=== PATIENT | female | born 1970 | race Caucasian/White ===

== ENCOUNTER 2016-12-21 16:11 | Emergency (ER) | payer OTHER ==
[2016-12-21 17:18] LABS: Partial Thromboplastin Time 23.5 sec (22.0-30.0); Prothrombin Time 10.3 sec (9.0-12.0)
[2016-12-21 17:26] LABS: ALT 23 U/L (9-52); AST 19 U/L (14-36); Alkaline Phosphatase 135 U/L (38-126); Anion Gap 13 mmol/L; Blood Urea Nitrogen 13 mg/dL (7-17); Calcium 9.8 mg/dL (8.4-10.2); Carbon Dioxide 30 mmol/L (22-30); Chloride 99 mmol/L (98-107); Glucose 137 mg/dL (74-99); Non-African American GFR(MDRD) >60 (>60 ml/min/1.73 sqM); Potassium 4.5 mmol/L (3.5-5.1); Sodium 142 mmol/L (137-145); Total Bilirubin 0.4 mg/dL (0.2-1.3); Total Protein 7.5 g/dL (6.3-8.2)
[2016-12-21 17:35] LABS: Basophils % (A) 0 %; CH 31.5; CHCM 32.4; Eosinophils % (A) 0 %; HCT 34.5 % (34.0-46.0); HGB 10.8 gm/dL (11.4-16.0); Luc % (Auto) 4; Lymphocytes # (A) 1.8 k/uL (1.0-4.8); Lymphocytes % (A) 17 %; MCH 30.4 pg (25.0-35.0); MCHC 31.3 g/dL (31.0-37.0); MCV 97.3 fL (80.0-100.0); Mean Platelet Volume 7.5; Monocytes # (A) 0.7 k/uL (0-1.0); Monocytes % (A) 6 %; Neutrophils # (A) 7.7 k/uL (1.3-7.7); Neutrophils % (A) 72 %; RBC 3.54 m/uL (3.80-5.40); RBC Fragment Flag Slight; RDW 13.5 % (11.5-15.5); Reticulocyte % 1.1 % (0.5-2.0); WBC 10.6 k/uL (3.8-10.6); WBC (Perox) 10.17
[2016-12-21 17:49] VITALS: PULSE 101
[2016-12-21 18:10] LABS: Large Platelets Present; Manual Review Performed; Polychromasia Present
--- NOTE | 2016-12-21 18:46 | ED ---
Recheck HPI - General Chief Complaint: Recheck/Abnormal Lab/Rx Stated Complaint: Abnormal Labs Time Seen by Provider: 12/21/16 16:37 Source: patient, RN notes reviewed Mode of arrival: ambulatory Limitations: no limitations - History of Present Illness Initial Comments: 45-year-old female presented emergency department for abnormal labs. Patient states she was told her platelets, hemoglobin and back Problems. Patient states she went to her primary physician on Sunday because she was not feeling well patient is just very fatigued. Patient denies any focal weakness, headache , dizziness, nausea, vomiting. She states she did have some abdominal pain in the left side in the past for states she really does not much parents time. Denies any dysuria hematuria. Patient denies any chest pain or palpitations. Patient has a history of diabetes but no other significant past medical history. - Related Data Home Medications Medication Instructions Recorded Confirmed Cyclobenzaprine [Flexeril] 10 mg PO HS PRN 06/18/14 12/21/16 Lisinopril [Zestril] 2.5 mg PO HS 06/18/14 12/21/16 HYDROcodone/APAP 10-325MG [[place] 1 - 2 tab PO Q6H PRN 03/04/15 12/21/16 10-325] Insulin Glulisine [Apidra] See Protocol SQ DAILY 03/04/15 12/21/16 Simvastatin [Zocor] 20 mg PO HS 03/04/15 12/21/16 Ascorbic Acid [Vitamin C] 500 mg PO HS 12/21/16 12/21/16 Aspirin 81 mg PO HS 12/21/16 12/21/16 Allergies Allergy/AdvReac Type Severity Reaction Status Date / Time No Known Allergies Allergy Verified 12/21/16 17:15 Review of Systems ROS Statement: Those systems with pertinent positive or pertinent negative responses have been documented in the HPI. ROS Other: All systems not noted in ROS Statement are negative. Past Medical History Past Medical History: Diabetes Mellitus Additional Past Medical History / Comment(s): SEIZURE DUE TO BLOOD SUGAR, insulin pump History of Any Multi-Drug Resistant Organisms: None Reported Past Surgical History: Appendectomy, Orthopedic Surgery Additional Past Surgical History / Comment(s): HAND SURGERY Past Anesthesia/Blood Transfusion Reactions: No Reported Reaction Past Psychological History: Anxiety Smoking Status: Former smoker Past Alcohol Use History: Occasional Past Drug Use History: None Reported - Past Family History Father Family Medical History: Cancer Sister(s) Family Medical History: Cancer General Exam Limitations: no limitations General appearance: alert, in no apparent distress Head exam: Present: atraumatic, normocephalic, normal inspection Eye exam: Present: normal appearance, PERRL, EOMI. Absent: scleral icterus, conjunctival injection, periorbital swelling Respiratory exam: Present: normal lung sounds bilaterally. Absent: respiratory distress, wheezes, rales, rhonchi, stridor Cardiovascular Exam: Present: regular rate, normal rhythm, normal heart sounds. Absent: systolic murmur, diastolic murmur, rubs, gallop, clicks GI/Abdominal exam: Present: soft, normal bowel sounds. Absent: distended, tenderness, guarding, rebound, rigid Course Vital Signs 12/21/16 12/21/16 16:12 17:40 Temperature 98.4 F Pulse Rate 110 H 101 H Respiratory 16 14 Rate Blood Pressure 139/70 120/65 O2 Sat by Pulse 100 100 Oximetry Medical Decision Making - Medical Decision Making Please was discussed with Dr. Roman who states that the patient is stable she can follow up outpatient with hematology. Patient's vitals are within normal limits and patient is having no complaints at this time. Patient does have elevated platelets and mild anemia. Patient referred to a time checker. Return parameters were discussed. - Lab Data Result diagrams: 12/21/16 17:00 12/21/16 17:00 Lab Results 12/21/16 12/21/16 12/21/16 Range/Units 17:00 17:00 17:00 WBC 10.6 (3.8-10.6) k/uL RBC 3.54 L (3.80-5.40) m/uL Hgb 10.8 L (11.4-16.0) gm/dL Hct 34.5 (34.0-46.0) % MCV 97.3 (80.0-100.0) fL MCH 30.4 (25.0-35.0) pg MCHC 31.3 (31.0-37.0) g/dL RDW 13.5 (11.5-15.5) % Plt Count 1016 H* (150-450) k/uL Neutrophils % 72 % Lymphocytes % 17 % Monocytes % 6 % Eosinophils % 0 % Basophils % 0 % Neutrophils # 7.7 (1.3-7.7) k/uL Lymphocytes # 1.8 (1.0-4.8) k/uL Monocytes # 0.7 (0-1.0) k/uL Eosinophils # 0.0 (0-0.7) k/uL Basophils # 0.0 (0-0.2) k/uL Manual Slide Review Performed Large Platelets Present Polychromasia Present Retic Count 1.1 (0.5-2.0) % PT (9.0-12.0) sec INR (<1.1) APTT (22.0-30.0) sec Sodium 142 (137-145) mmol/L Potassium 4.5 (3.5-5.1) mmol/L Chloride 99 (98-107) mmol/L Carbon Dioxide 30 (22-30) mmol/L Anion Gap 13 mmol/L BUN 13 (7-17) mg/dL Creatinine 0.75 (0.52-1.04) mg/dL Est GFR (MDRD) Af Amer >60 (>60 ml/min/1.73 sqM) Est GFR (MDRD) Non-Af >60 (>60 ml/min/1.73 sqM) Glucose 137 H (74-99) mg/dL Calcium 9.8 (8.4-10.2) mg/dL Total Bilirubin 0.4 (0.2-1.3) mg/dL AST 19 (14-36) U/L ALT 23 (9-52) U/L Alkaline Phosphatase 135 H (38-126) U/L Total Protein 7.5 (6.3-8.2) g/dL Albumin 3.8 (3.5-5.0) g/dL Blood Type A Positive Blood Type Recheck CABO Indicated Antibody Screen NEGATIVE Spec Expiration Date 12/24/2016 - 229912/21/16 Range/Units 17:00 WBC (3.8-10.6) k/uL RBC (3.80-5.40) m/uL Hgb (11.4-16.0) gm/dL Hct (34.0-46.0) % MCV (80.0-100.0) fL MCH (25.0-35.0) pg MCHC (31.0-37.0) g/dL RDW (11.5-15.5) % Plt Count (150-450) k/uL Neutrophils % % Lymphocytes % % Monocytes % % Eosinophils % % Basophils % % Neutrophils # (1.3-7.7) k/uL Lymphocytes # (1.0-4.8) k/uL Monocytes # (0-1.0) k/uL Eosinophils # (0-0.7) k/uL Basophils # (0-0.2) k/uL Manual Slide Review Large Platelets Polychromasia Retic Count (0.5-2.0) % PT 10.3 (9.0-12.0) sec INR 1.0 (<1.1) APTT 23.5 (22.0-30.0) sec Sodium (137-145) mmol/L Potassium (3.5-5.1) mmol/L Chloride (98-107) mmol/L Carbon Dioxide (22-30) mmol/L Anion Gap mmol/L BUN (7-17) mg/dL Creatinine (0.52-1.04) mg/dL Est GFR (MDRD) Af Amer (>60 ml/min/1.73 sqM) Est GFR (MDRD) Non-Af (>60 ml/min/1.73 sqM) Glucose (74-99) mg/dL Calcium (8.4-10.2) mg/dL Total Bilirubin (0.2-1.3) mg/dL AST (14-36) U/L ALT (9-52) U/L Alkaline Phosphatase (38-126) U/L Total Protein (6.3-8.2) g/dL Albumin (3.5-5.0) g/dL Blood Type Blood Type Recheck Antibody Screen Spec Expiration Date Disposition Clinical Impression: Thrombocytosis, Anemia Disposition: HOME SELF-CARE Condition: Stable Instructions: Anemia (ED) Additional Instructions: Please return to the Emergency Department if symptoms worsen or any other concerns. Referrals: Devang Roman MD [Primary Care Provider] - 1-2 days Andrew Farmer MD [STAFF PHYSICIAN] - 1-2 days Time of Disposition: 18:46
[2016-12-21 19:10] VITALS: BP 142/76; RESP 18; TEMP 98.6
== END 2016-12-21 19:10 | disposition home or self-care (01) ==
LOC: EC 16:11
DX: D47.3 Essential (hemorrhagic) thrombocythemia (principal); D64.9 Anemia, unspecified; R53.83 Other fatigue; R10.9 Unspecified abdominal pain; E11.9 Type 2 diabetes mellitus without complications; Z87.891 Personal history of nicotine dependence; Z79.4 Long term (current) use of insulin; Z79.82 Long term (current) use of aspirin; Z79.899 Other long term (current) drug therapy
CPT/HCPCS: 36415; 80053; 85025; 85045; 85610; 85730; 86850; 86900; 86901; 99283

== ENCOUNTER → 2018-12-02 | Outpatient (CLI) | payer OTHER ==
[2018-12-03 01:39] LABS: ALT 15 U/L (8-44); AST 32 U/L (13-35)
== END | disposition home or self-care (01) ==
LOC: LABWHC1 15:58
PROVIDERS: ATTEND Podiatrist Foot & Ankle Surgery
DX: K76.9 Liver disease, unspecified (principal)
CPT/HCPCS: 36415; 84450; 84460

== ENCOUNTER → 2018-12-17 | Outpatient (CLI) | payer OTHER ==
[2018-12-17 16:05] VITALS: BP 122/71; PULSE 86; RESP 18; TEMP 97.3; BMI 26.4
--- NOTE | 2018-12-17 16:55 | P.HPOB ---
History of Present Illness H&P Date: 12/17/18 Chief Complaint: The patient is here for her routine gynecologic exam and ma mmogram. This is a 47-year-old G0 with an LMP of 12/07/2018. The patient is without gynecologic complaints. She has used condoms for control. Review of Systems The patient's weight has been stable over the last 2 years. She denies respiratory, cardiac, or G.I. problems. Past Medical History Past Medical History: Diabetes Mellitus, Hyperlipidemia, Osteoarthritis (OA) Additional Past Medical History / Comment(s): Type I diabetes since age 12. Diabetic neuropathy. Arthritis of the neck. 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 History of Any Multi-Drug Resistant Organisms: None Reported Past Surgical History: Appendectomy, Orthopedic Surgery Additional Past Surgical History / Comment(s): HAND SURGERY. Right rotator cuff surgery. Arthroscopic knee surgery. Past Anesthesia/Blood Transfusion Reactions: No Reported Reaction Past Psychological History: Anxiety Smoking Status: Former smoker Past Alcohol Use History: Occasional (3 or 4 per month) Past Drug Use History: None Reported Additional History: She has been with her boyfriend since 1992 and lives with him. 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 - Past Family History Father Family Medical History: Cancer Additional Family Medical History / Comment(s): Lymphoma Sister(s) Family Medical History: Cancer Additional Family Medical History / Comment(s): Liver cancer. Mother Family Medical History: Coronary Artery Disease (CAD) Medications and Allergies Home Medications Medication Instructions Recorded Confirmed Type Cyclobenzaprine [Flexeril] 10 mg PO HS PRN 06/18/14 12/21/16 History Lisinopril [Zestril] 2.5 mg PO HS 06/18/14 12/17/18 History Simvastatin [Zocor] 20 mg PO HS 03/04/15 12/21/16 History Ascorbic Acid [Vitamin C] 500 mg PO HS 12/21/16 12/21/16 History Aspirin 81 mg PO HS 12/21/16 12/21/16 History HYDROcodone/APAP 7.5-325MG [[place] 1 tab PO Q4-6H PRN 12/17/18 12/17/18 History 7.5-325] Insulin Lispro [Admelog] 100 unit SQ 12/17/18 History Allergies Allergy/AdvReac Type Severity Reaction Status Date / Time No Known Allergies Allergy Verified 12/17/18 16:05 Exam Vital Signs Temp Pulse Resp BP Pulse Ox 12/17/18 15:57 97.3 F L 86 18 122/71 97 Intake and Output 12/17/18 12/17/18 12/17/18 06:59 14:59 22:59 Other: Weight 69.853 kg Height 5'4", weight 154 pounds, BMI 26.4. This is a well-developed well-nourished white female who is alert and oriented times 3 in no acute distress. HEENT: Within normal limits. NECK: Supple without mass or thyromegaly. CHEST AND LUNGS: Clear to auscultation. HEART: Regular rate and rhythm. BREASTS: Are without mass or discharge. AXILLARY EXAM: Negative for adenopathy. BACK: Negative for CVA tenderness. ABDOMEN: Soft, nontender, without palpable masses. PELVIC EXAM: Normal external genitalia. Cervix and vagina appear normal. There is no unusual discharge. There is no evidence of prolapse. The uterus is midposition, nongravid size and nontender. There are no palpable adnexal masses or tenderness. RECTAL EXAM: negative for mass or tenderness and is negative for occult blood. EXTREMITIES: Nontender. IMPRESSION: 1. 47-year-old female with normal gynecologic exam. PLAN: 1. Pap smear was performed. 2. Self breast awareness was discussed with the patient. 3. Screening mammogram will be done today. 4. Osteoporosis prevention was discussed. I have stressed the importance of adequate calcium, vitamin D and regular exercise. Recommended amounts of calcium and vitamin D were also discussed. 5. She was advised to return in one year for her annual well woman exam.
--- NOTE | 2018-12-18 13:19 | MM ---
Reason for exam: screening (asymptomatic). Last mammogram was performed 2 years and 5 months ago. History: Patient is nulliparous. Took hormonal contraceptives for 4 years. Physical Findings: A clinical breast exam by your physician is recommended on an annual basis and results should be correlated with mammographic findings. MG Screening Mammo w CAD Bilateral CC and MLO view(s) were taken. Prior study comparison: July 25, 2016, bilateral MG screening mammo w CAD. May 19, 2015, bilateral MG screening mammo w CAD. The breast tissue is extremely dense which could obscure a lesion on mammography. Stable benign calcifications bilaterally. There is no discrete abnormality. No significant changes when compared with prior studies. ASSESSMENT: Benign, BI-RAD 2 RECOMMENDATION: Routine screening mammogram of both breasts in 1 year.
== END ==
LOC: WWCWWP 15:52
PROVIDERS: ATTEND Obstetrics & Gynecology
DX: Z12.31 Encounter for screening mammogram for malignant neoplasm of breast (principal)
CPT/HCPCS: 77067